=== PATIENT | male | born 1970 | race Caucasian/White ===

== ENCOUNTER 2017-06-19 17:19 | Emergency (ER) | payer BC ==
[2017-06-19 19:05] LABS: APPEARANCE HAZY (CLEAR); BILIRUBIN NEGATIVE (NEGATIVE); COLOR YELLOW (YELLOW); GLUCOSE 50 mg/dL (NEGATIVE); KETONE NEGATIVE (NEGATIVE); NITRITE NEGATIVE (NEGATIVE); PROTEIN 3+ mg/dL (NEGATIVE); UROBILINOGEN NORMAL (NORMAL)
[2017-06-19 19:20] LABS: BACTERIA FEW /hpf (NONE SEEN); EPITHELIAL CELLS RARE /hpf (0-5); RED CELLS - URINE >50 /hpf (0-5); WHITE CELLS - URINE 0-5 /hpf (0-5)
[2017-06-19 19:35] LABS: BASOPHILS 0.5 % (0-2); EOSINOPHILS 4.2 % (0-7); HEMATOCRIT 38.7 % (42.0-54.0); HEMOGLOBIN 13.1 g/dL (13.5-17.5); IMMATURE GRANULOCYTES 0.2 % (0-5); LYMPHOCYTES 22.4 % (15-50); MCH 30.8 pg (26.0-34.0); MCHC 33.9 g/dL (31.0-37.0); MCV 90.8 fL (80.0-100.0); MONOCYTES 7.9 % (2-11); NEUTROPHILS 64.8 % (40-80); PLATELET COUNT 131 10x3/uL (130-400); RBC 4.26 10x6/uL (4.20-6.10); RDW 13.2 % (11.5-14.5); WBC 10.6 10x3/uL (4.8-10.8)
[2017-06-19 19:51] LABS: ALBUMIN 1.9 g/dL (3.4-5.0); BILIRUBIN - TOTAL 0.22 mg/dL (0.2-1.3); CALCIUM 8.1 mg/dL (8.5-10.1); CREATININE - SERUM 3.6 mg/dL (0.6-1.3); PROTEIN - SERUM 5.9 g/dL (6.4-8.2)
[2017-06-22 11:21] VITALS: BMI 31.3
== END 2017-06-19 23:10 | disposition home or self-care (01) ==
LOC: D.ER 17:19
PROVIDERS: Emergency Medicine
DX: N23 Unspecified renal colic (principal); I12.9 Hypertensive chronic kidney disease with stage 1 through stage 4 chronic kidney disease, or unspecified chronic kidney disease; N18.9 Chronic kidney disease, unspecified; E11.649 Type 2 diabetes mellitus with hypoglycemia without coma; Z79.4 Long term (current) use of insulin

== ENCOUNTER 2017-06-21 11:25 | Inpatient (IN) | payer BC ==
[~2017-06-21] VITALS: Ht 170.2 cm; Wt 98.0 kg
[2017-06-21 12:16] LABS: BASOPHILS 0.5 % (0-2); EOSINOPHILS 4.9 % (0-7); HEMOGLOBIN 12.7 g/dL (13.5-17.5); IMMATURE GRANULOCYTES 0.3 % (0-5); LYMPHOCYTES 24.4 % (15-50); MCH 30.5 pg (26.0-34.0); MCHC 33.4 g/dL (31.0-37.0); MCV 91.3 fL (80.0-100.0); MEAN PLATELET VOLUME 10.5 fL (7.4-10.4); MONOCYTES 6.7 % (2-11); NEUTROPHILS 63.2 % (40-80); PLATELET COUNT 129 10x3/uL (130-400); RBC 4.16 10x6/uL (4.20-6.10); RDW 13.4 % (11.5-14.5)
[2017-06-21 12:34] LABS: WBC 7.6 10x3/uL (4.8-10.8)
[2017-06-21 12:35] LABS: APPEARANCE CLEAR (CLEAR); BACTERIA FEW /hpf (NONE SEEN); BILIRUBIN NEGATIVE (NEGATIVE); COLOR YELLOW (YELLOW); EPITHELIAL CELLS OCC /hpf (0-5); GLUCOSE 250 mg/dL (NEGATIVE); KETONE NEGATIVE (NEGATIVE); MUCUS <1+ /lpf (NONE SEEN); NITRITE NEGATIVE (NEGATIVE); PROTEIN 3+ mg/dL (NEGATIVE); UROBILINOGEN NORMAL (NORMAL)
[2017-06-21 12:36] LABS: ALBUMIN 1.8 g/dL (3.4-5.0); ANION GAP 9.3 mmol/L (8-16); BILIRUBIN - TOTAL 0.25 mg/dL (0.2-1.3); CALCIUM 8.3 mg/dL (8.5-10.1); CARBON DIOXIDE 30.1 mmol/L (21.0-32.0); CREATININE - SERUM 3.8 mg/dL (0.6-1.3); POTASSIUM - SERUM 4.4 mmol/L (3.5-5.1); PROTEIN - SERUM 5.8 g/dL (6.4-8.2)
[2017-06-21 20:00] VITALS: BP 177/92
[2017-06-21 20:04] VITALS: BMI 31.4
[2017-06-21 20:40] VITALS: BP 139/85
[2017-06-22] VITALS: BP 160/87
[2017-06-22] MEDS ORDERED: CATAPRES0.3 MG PO (03:53)
[2017-06-22] MEDS ORDERED: LASIX80 MG PO (03:54)
[2017-06-22] MEDS ORDERED: NEURONTIN600 MG PO (03:54)
[2017-06-22] MEDS ORDERED: HYDROCODONE-APA1 TAB PO (03:55)
[2017-06-22] MEDS ORDERED: ZESTRIL40 MG PO (03:55)
[2017-06-22] MEDS ORDERED: ROBAXIN-750750 MG PO (03:56)
[2017-06-22] MEDS ORDERED: PRAVACHOL40 MG PO (03:58)
[2017-06-22] MEDS ORDERED: NORVASC10 MG PO (03:58)
[2017-06-22 04:00] VITALS: BP 184/100
[2017-06-22 06:09] LABS: BASOPHILS 0.5 % (0-2); EOSINOPHILS 6.7 % (0-7); HEMATOCRIT 34.1 % (42.0-54.0); HEMOGLOBIN 11.3 g/dL (13.5-17.5); IMMATURE GRANULOCYTES 0.3 % (0-5); LYMPHOCYTES 31.6 % (15-50); MCH 30.1 pg (26.0-34.0); MCHC 33.1 g/dL (31.0-37.0); MCV 90.7 fL (80.0-100.0); MEAN PLATELET VOLUME 10.4 fL (7.4-10.4); MONOCYTES 9.9 % (2-11); PLATELET COUNT 105 10x3/uL (130-400); RBC 3.76 10x6/uL (4.20-6.10); RDW 13.5 % (11.5-14.5); WBC 6.3 10x3/uL (4.8-10.8)
[2017-06-22 06:20] LABS: ALBUMIN 1.5 g/dL (3.4-5.0); ANION GAP 9.3 mmol/L (8-16); BILIRUBIN - TOTAL 0.2 mg/dL (0.2-1.3); CARBON DIOXIDE 27.6 mmol/L (21.0-32.0); CREATININE - SERUM 3.9 mg/dL (0.6-1.3); POTASSIUM - SERUM 3.9 mmol/L (3.5-5.1); PROTEIN - SERUM 5.2 g/dL (6.4-8.2)
[2017-06-22 08:00] VITALS: BP 171/90
[2017-06-22 09:21] VITALS: BMI 31.3
[2017-06-22 11:21] VITALS: Ht 170.2 cm; Wt 98.0 kg
[2017-06-22 11:32] LABS: % SATURATION 33 % (15-55); IRON 42 ug/dl (35-150); TOTAL IRON BIND CAPACITY 124 ug/dl (260-445); UNSAT IRON BIND CAPACITY 82 ug/dl (150-375)
[2017-06-22 13:32] VITALS: BP 128/91
[2017-06-22 16:00] VITALS: BP 173/101
[2017-06-22 20:12] VITALS: BP 196/97
[2017-06-23 00:42] VITALS: BP 155/97
[2017-06-23 04:05] VITALS: BP 154/89
[2017-06-23 06:26] LABS: BASOPHILS 0.5 % (0-2); EOSINOPHILS 5.6 % (0-7); HEMATOCRIT 33.4 % (42.0-54.0); HEMOGLOBIN 11.4 g/dL (13.5-17.5); MCH 30.5 pg (26.0-34.0); MCHC 34.1 g/dL (31.0-37.0); MCV 89.3 fL (80.0-100.0); MEAN PLATELET VOLUME 10.2 fL (7.4-10.4); MONOCYTES 10.2 % (2-11); NEUTROPHILS 60.7 % (40-80); PLATELET COUNT 102 10x3/uL (130-400); RBC 3.74 10x6/uL (4.20-6.10); RDW 13.3 % (11.5-14.5); WBC 6.4 10x3/uL (4.8-10.8)
[2017-06-23 06:48] LABS: ANION GAP 13.3 mmol/L (8-16); CALCIUM 7.6 mg/dL (8.5-10.1); CARBON DIOXIDE 24.1 mmol/L (21.0-32.0); CREATININE - SERUM 3.9 mg/dL (0.6-1.3)
[2017-06-23 06:49] LABS: POTASSIUM - SERUM 5.4 mmol/L (3.5-5.1)
[2017-06-23 08:21] LABS: FOLATE (FOLIC ACID) - SERUM 3.5 ng/mL (>3.0)
[2017-06-23 10:43] VITALS: BP 169/95
[2017-06-23 12:33] VITALS: BP 154/79
[2017-06-23 15:28] LABS: ERYTHROCYTE SEDIMENTATION RATE 90 mm/hr (0-15)
[2017-06-23 16:49] LABS: CREATININE - URINE 66.9 mg/dL (30-125)
[2017-06-23 16:56] LABS: PRO/CRE RATIO URINE 8.2 mg/g; PROTEIN - URINE 549.7 mg/dL (0.0-11.9)
[2017-06-23 16:57] LABS: APPEARANCE CLEAR (CLEAR); BILIRUBIN NEGATIVE (NEGATIVE); COLOR STRAW (YELLOW); GLUCOSE 1000 mg/dL (NEGATIVE); KETONE NEGATIVE (NEGATIVE); NITRITE NEGATIVE (NEGATIVE); PROTEIN 2+ mg/dL (NEGATIVE); SPECIFIC GRAVITY 1.015 (1.005-1.020); UROBILINOGEN NORMAL (NORMAL)
[2017-06-23 17:03] LABS: BACTERIA FEW /hpf (NONE SEEN); WHITE CELLS - URINE 0-5 /hpf (0-5)
[2017-06-23 17:04] LABS: HYALINE CAST RARE /lpf (NONE SEEN)
[2017-06-23 20:00] VITALS: BP 157/96
[2017-06-24] VITALS (7 sets, daily range): BP systolic 145–188; BP diastolic 62–99
[2017-06-24 05:37] LABS: BASOPHILS 0.7 % (0-2); EOSINOPHILS 5.9 % (0-7); HEMATOCRIT 34.3 % (42.0-54.0); HEMOGLOBIN 11.6 g/dL (13.5-17.5); IMMATURE GRANULOCYTES 0.2 % (0-5); LYMPHOCYTES 20.1 % (15-50); MCH 30.1 pg (26.0-34.0); MCHC 33.8 g/dL (31.0-37.0); MCV 88.9 fL (80.0-100.0); MEAN PLATELET VOLUME 11.2 fL (7.4-10.4); MONOCYTES 8.6 % (2-11); NEUTROPHILS 64.5 % (40-80); PLATELET COUNT 114 10x3/uL (130-400); RBC 3.86 10x6/uL (4.20-6.10); RDW 13.3 % (11.5-14.5); WBC 6.1 10x3/uL (4.8-10.8)
[2017-06-24 06:05] LABS: APTT 35.6 SECONDS (22.8-39.4)
[2017-06-24 06:08] LABS: CALCIUM 7.4 mg/dL (8.5-10.1); CARBON DIOXIDE 19.1 mmol/L (21.0-32.0); CREATININE - SERUM 4.4 mg/dL (0.6-1.3)
[2017-06-24 06:09] LABS: INR 0.88 (0.85-1.17); PROTIME 11.6 SECONDS (11.6-15.0)
[2017-06-24 06:13] LABS: POTASSIUM - SERUM 6.1 mmol/L (3.5-5.1)
[2017-06-25 05:06] VITALS: BP 160/83
[2017-06-25 08:15] LABS: APPEARANCE HAZY (CLEAR); BILIRUBIN NEGATIVE (NEGATIVE); COLOR STRAW (YELLOW); GLUCOSE 50 mg/dL (NEGATIVE); KETONE NEGATIVE (NEGATIVE); NITRITE NEGATIVE (NEGATIVE); PROTEIN 3+ mg/dL (NEGATIVE); SPECIFIC GRAVITY 1.015 (1.005-1.020); UROBILINOGEN NORMAL (NORMAL)
[2017-06-25 08:17] LABS: RED CELLS - URINE 25-50 /hpf (0-5); WHITE CELLS - URINE 0-5 /hpf (0-5)
[2017-06-25 08:17] LABS: BASOPHILS 0.6 % (0-2); EOSINOPHILS 3.2 % (0-7); HEMATOCRIT 31.2 % (42.0-54.0); HEMOGLOBIN 10.7 g/dL (13.5-17.5); IMMATURE GRANULOCYTES 0.2 % (0-5); MCH 30.3 pg (26.0-34.0); MCHC 34.3 g/dL (31.0-37.0); MCV 88.4 fL (80.0-100.0); MEAN PLATELET VOLUME 10.4 fL (7.4-10.4); MONOCYTES 10.9 % (2-11); NEUTROPHILS 67.1 % (40-80); PLATELET COUNT 130 10x3/uL (130-400); RBC 3.53 10x6/uL (4.20-6.10); RDW 13.5 % (11.5-14.5); WBC 4.7 10x3/uL (4.8-10.8)
[2017-06-25 08:18] LABS: AMORPHOUS SEDIMENT >1+ /lpf (NONE SEEN); BACTERIA MODERATE /hpf (NONE SEEN); EPITHELIAL CELLS 0-5 /hpf (0-5); GRANULAR CAST 0-5 /lpf (NONE SEEN); HYALINE CAST RARE /lpf (NONE SEEN); MUCUS <1+ /lpf (NONE SEEN)
[2017-06-25 08:32] LABS: ANION GAP 13.6 mmol/L (8-16); CALCIUM 7.5 mg/dL (8.5-10.1); CARBON DIOXIDE 22.5 mmol/L (21.0-32.0); CREATININE - SERUM 4.3 mg/dL (0.6-1.3); POTASSIUM - SERUM 4.1 mmol/L (3.5-5.1)
[2017-06-25 08:45] VITALS: BP 170/82
[2017-06-25 12:03] LABS: BASOPHILS 1.2 % (0-2); EOSINOPHILS 2.1 % (0-7); HEMATOCRIT 29.9 % (42.0-54.0); HEMOGLOBIN 10.2 g/dL (13.5-17.5); IMMATURE GRANULOCYTES 0.2 % (0-5); LYMPHOCYTES 17.9 % (15-50); MCH 30.2 pg (26.0-34.0); MCHC 34.1 g/dL (31.0-37.0); MCV 88.5 fL (80.0-100.0); MEAN PLATELET VOLUME 9.5 fL (7.4-10.4); NEUTROPHILS 69.6 % (40-80); PLATELET COUNT 104 10x3/uL (130-400); RBC 3.38 10x6/uL (4.20-6.10); RDW 13.4 % (11.5-14.5); WBC 4.2 10x3/uL (4.8-10.8)
[2017-06-25 13:17] VITALS: BP 162/80
[2017-06-25 15:52] VITALS: BP 206/91
[2017-06-25 20:31] VITALS: BP 150/83
[2017-06-26 01:49] VITALS: BP 167/79
[2017-06-26 04:57] VITALS: BP 140/99
[2017-06-26 06:42] LABS: BASOPHILS 0.8 % (0-2); EOSINOPHILS 0.3 % (0-7); HEMATOCRIT 28.6 % (42.0-54.0); HEMOGLOBIN 9.5 g/dL (13.5-17.5); IMMATURE GRANULOCYTES 0.5 % (0-5); LYMPHOCYTES 16.2 % (15-50); MCH 29.8 pg (26.0-34.0); MCHC 33.2 g/dL (31.0-37.0); MCV 89.7 fL (80.0-100.0); MEAN PLATELET VOLUME 10.4 fL (7.4-10.4); MONOCYTES 6.2 % (2-11); PLATELET COUNT 109 10x3/uL (130-400); RBC 3.19 10x6/uL (4.20-6.10); RDW 13.6 % (11.5-14.5); WBC 3.7 10x3/uL (4.8-10.8)
[2017-06-26 07:01] LABS: ANION GAP 13.8 mmol/L (8-16); CALCIUM 7.2 mg/dL (8.5-10.1); CARBON DIOXIDE 21.1 mmol/L (21.0-32.0); CREATININE - SERUM 4.8 mg/dL (0.6-1.3); POTASSIUM - SERUM 3.9 mmol/L (3.5-5.1)
[2017-06-26 08:31] VITALS: BP 132/77
[2017-06-26 11:44] VITALS: BP 147/78
[2017-06-26 15:50] VITALS: BP 123/65
[2017-06-26 22:00] VITALS: BP 179/94
[2017-06-27 01:42] VITALS: BP 99/62
[2017-06-27 05:35] LABS: BASOPHILS 0.5 % (0-2); EOSINOPHILS 0 % (0-7); HEMATOCRIT 30.5 % (42.0-54.0); IMMATURE GRANULOCYTES 0.2 % (0-5); LYMPHOCYTES 17.6 % (15-50); MCH 29.9 pg (26.0-34.0); MCHC 32.8 g/dL (31.0-37.0); MEAN PLATELET VOLUME 10.3 fL (7.4-10.4); MONOCYTES 9.9 % (2-11); NEUTROPHILS 71.8 % (40-80); PLATELET COUNT 112 10x3/uL (130-400); RBC 3.35 10x6/uL (4.20-6.10); RDW 14.1 % (11.5-14.5); WBC 4.3 10x3/uL (4.8-10.8)
[2017-06-27 05:55] VITALS: BP 146/25
[2017-06-27 05:59] LABS: ANION GAP 12.7 mmol/L (8-16); CALCIUM 7.3 mg/dL (8.5-10.1); CARBON DIOXIDE 22.5 mmol/L (21.0-32.0); CREATININE - SERUM 4.9 mg/dL (0.6-1.3); POTASSIUM - SERUM 4.2 mmol/L (3.5-5.1)
[2017-06-27 09:26] VITALS: BP 147/76
[2017-06-27 12:43] VITALS: BP 119/60
[2017-06-27 17:33] VITALS: BP 102/64
[2017-06-27 21:52] VITALS: BP 135/72
[2017-06-28 00:48] VITALS: BP 138/74
[2017-06-28 05:33] VITALS: BP 143/73
[2017-06-28 06:26] LABS: HEMATOCRIT 29.9 % (42.0-54.0); HEMOGLOBIN 10.3 g/dL (13.5-17.5); LYMPHOCYTES 23.2 % (15-50); MCH 30.9 pg (26.0-34.0); MCHC 34.4 g/dL (31.0-37.0); MCV 89.8 fL (80.0-100.0); MEAN PLATELET VOLUME 10.7 fL (7.4-10.4); NEUTROPHILS 66.5 % (40-80); PLATELET COUNT 102 10x3/uL (130-400); RBC 3.33 10x6/uL (4.20-6.10); RDW 13.6 % (11.5-14.5)
[2017-06-28 06:36] LABS: ALBUMIN 1.4 g/dL (3.4-5.0); ANION GAP 14.7 mmol/L (8-16); BILIRUBIN - TOTAL 0.4 mg/dL (0.2-1.3); CALCIUM 7.1 mg/dL (8.5-10.1); CARBON DIOXIDE 20.8 mmol/L (21.0-32.0); CREATININE - SERUM 5.2 mg/dL (0.6-1.3); POTASSIUM - SERUM 4.5 mmol/L (3.5-5.1); PROTEIN - SERUM 4.8 g/dL (6.4-8.2)
[2017-06-28 08:30] VITALS: BP 127/70
[2017-06-28 12:08] VITALS: BP 98/63
[2017-06-28 16:52] VITALS: BP 123/54
[2017-06-28 21:28] VITALS: BP 104/65
[2017-06-29 04:35] LABS: BASOPHILS 0.5 % (0-2); EOSINOPHILS 2.4 % (0-7); HEMATOCRIT 29.1 % (42.0-54.0); HEMOGLOBIN 9.4 g/dL (13.5-17.5); IMMATURE GRANULOCYTES 0.5 % (0-5); LYMPHOCYTES 45.8 % (15-50); MCH 29.7 pg (26.0-34.0); MCHC 32.3 g/dL (31.0-37.0); MEAN PLATELET VOLUME 10.4 fL (7.4-10.4); MONOCYTES 8.5 % (2-11); NEUTROPHILS 42.3 % (40-80); PLATELET COUNT 91 10x3/uL (130-400); RBC 3.16 10x6/uL (4.20-6.10); RDW 14.3 % (11.5-14.5); WBC 3.8 10x3/uL (4.8-10.8)
[2017-06-29 04:36] VITALS: BP 109/64
[2017-06-29 04:45] LABS: MCV 92.1 fL (80.0-100.0)
[2017-06-29 05:02] LABS: ALBUMIN 1.4 g/dL (3.4-5.0); ANION GAP 12.8 mmol/L (8-16); BILIRUBIN - TOTAL 0.34 mg/dL (0.2-1.3); CARBON DIOXIDE 23.2 mmol/L (21.0-32.0); CREATININE - SERUM 5.3 mg/dL (0.6-1.3); PROTEIN - SERUM 4.7 g/dL (6.4-8.2)
[2017-06-29 08:21] VITALS: BP 131/67
[2017-06-29 12:24] VITALS: BP 101/55
[2017-06-29 16:31] VITALS: BP 108/55
[2017-06-29 21:09] VITALS: BP 134/73
[2017-06-30 00:08] VITALS: BP 119/58
[2017-06-30 04:54] VITALS: BP 113/53
[2017-06-30 06:25] LABS: BASOPHILS 0.2 % (0-2); EOSINOPHILS 0.6 % (0-7); HEMOGLOBIN 9.9 g/dL (13.5-17.5); IMMATURE GRANULOCYTES 0.5 % (0-5); LYMPHOCYTES 16.7 % (15-50); MCH 30.3 pg (26.0-34.0); MCV 91.7 fL (80.0-100.0); MEAN PLATELET VOLUME 10.6 fL (7.4-10.4); RBC 3.27 10x6/uL (4.20-6.10); RDW 14.1 % (11.5-14.5)
[2017-06-30 06:26] LABS: PLATELET COUNT 129 10x3/uL (130-400); WBC 6.3 10x3/uL (4.8-10.8)
[2017-06-30 06:47] LABS: ALBUMIN 1.6 g/dL (3.4-5.0); ANION GAP 21.9 mmol/L (8-16); BILIRUBIN - TOTAL 0.38 mg/dL (0.2-1.3); CALCIUM 7.1 mg/dL (8.5-10.1); CREATININE - SERUM 5.4 mg/dL (0.6-1.3); POTASSIUM - SERUM 3.9 mmol/L (3.5-5.1); PROTEIN - SERUM 4.9 g/dL (6.4-8.2)
[2017-06-30 09:51] VITALS: BP 148/76
[2017-06-30 12:37] VITALS: BP 146/70
[2017-06-30 15:22] VITALS: BP 148/64
[2017-06-30 21:43] VITALS: BP 168/75
[2017-07-01 00:25] VITALS: BP 174/64
[2017-07-01 04:40] VITALS: BP 167/83
[2017-07-01 05:23] LABS: BASOPHILS 0.3 % (0-2); EOSINOPHILS 1.2 % (0-7); HEMATOCRIT 31.8 % (42.0-54.0); HEMOGLOBIN 10.3 g/dL (13.5-17.5); IMMATURE GRANULOCYTES 0.5 % (0-5); MCH 29.4 pg (26.0-34.0); MCHC 32.4 g/dL (31.0-37.0); MCV 90.9 fL (80.0-100.0); MEAN PLATELET VOLUME 10.2 fL (7.4-10.4); MONOCYTES 6.5 % (2-11); NEUTROPHILS 74.5 % (40-80); PLATELET COUNT 147 10x3/uL (130-400); RDW 14.2 % (11.5-14.5); WBC 6.4 10x3/uL (4.8-10.8)
[2017-07-01 05:56] LABS: ALBUMIN 1.8 g/dL (3.4-5.0); ANION GAP 16.6 mmol/L (8-16); BILIRUBIN - TOTAL 0.52 mg/dL (0.2-1.3); CALCIUM 7.9 mg/dL (8.5-10.1); CARBON DIOXIDE 20.9 mmol/L (21.0-32.0); CREATININE - SERUM 4.5 mg/dL (0.6-1.3)
[2017-07-01 05:59] LABS: POTASSIUM - SERUM 4.5 mmol/L (3.5-5.1)
[2017-07-01 11:58] VITALS: BP 113/67
[2017-07-01 16:09] VITALS: BP 140/70
[2017-07-01 22:10] VITALS: BP 158/80
[2017-07-02 00:14] VITALS: BP 135/75
[2017-07-02 06:33] VITALS: BP 133/76
== END 2017-07-02 07:08 | disposition short-term general hospital (02) | DRG 682 ==
LOC: D.ER 11:25 → D.M3 14:40 → D.MS 14:40 → D.SDCHOLD 14:40 → D.M3 17:51 → D.MS 06-25 16:52
PROVIDERS: Emergency Medicine; Family Medicine; Internal Medicine Nephrology; Specialist
PROC: 0TB03ZX Excision of Right Kidney, Percutaneous Approach, Diagnostic (ICD-10-PCS; principal; 2017-06-24 11:30)
DX: N17.9 Acute kidney failure, unspecified (principal); E43 Unspecified severe protein-calorie malnutrition; J10.00 Influenza due to other identified influenza virus with unspecified type of pneumonia; K56.7 Ileus, unspecified; E10.22 Type 1 diabetes mellitus with diabetic chronic kidney disease; I12.9 Hypertensive chronic kidney disease with stage 1 through stage 4 chronic kidney disease, or unspecified chronic kidney disease; N18.4 Chronic kidney disease, stage 4 (severe); K59.00 Constipation, unspecified; D64.9 Anemia, unspecified; D69.6 Thrombocytopenia, unspecified; Z68.31 Body mass index [BMI] 31.0-31.9, adult; D75.9 Disease of blood and blood-forming organs, unspecified; D47.2 Monoclonal gammopathy; F17.200 Nicotine dependence, unspecified, uncomplicated; E10.21 Type 1 diabetes mellitus with diabetic nephropathy

== ENCOUNTER → 2018-09-22 13:55 | Outpatient (CLI) | payer BC ==
[2017-06-22 11:21] VITALS: BMI 31.3
[~2018-09-22 13:55] MED LIST: CATAPRES0.3 MG PO; HYDROCODONE-APA1 TAB PO; LASIX80 MG PO; NEURONTIN600 MG PO; NORVASC10 MG PO; PRAVACHOL40 MG PO; ROBAXIN-750750 MG PO; ZESTRIL40 MG PO
[2018-09-22 15:00] LABS: BASOPHILS 1.2 % (0-2); HEMATOCRIT 41.5 % (42.0-54.0); HEMOGLOBIN 13.8 g/dL (13.5-17.5); IMMATURE GRANULOCYTES 0.3 % (0-5); LYMPHOCYTES 33.1 % (15-50); MCH 31.7 pg (26.0-34.0); MCHC 33.3 g/dL (31.0-37.0); MCV 95.2 fL (80.0-100.0); MEAN PLATELET VOLUME 10.5 fL (7.4-10.4); MONOCYTES 6.2 % (2-11); NEUTROPHILS 55.2 % (40-80); PLATELET COUNT 147 10x3/uL (130-400); RBC 4.36 10x6/uL (4.20-6.10); RDW 14.5 % (11.5-14.5)
== END | disposition home or self-care (01) ==
LOC: D.LAB 13:55
PROVIDERS: ATTEND Internal Medicine Nephrology
DX: R11.10 Vomiting, unspecified (principal); R50.9 Fever, unspecified

== ENCOUNTER → 2019-01-19 09:25 | Outpatient (CLI) | payer BC ==
[2017-06-22 11:21] VITALS: BMI 31.3
[~2019-01-19 09:25] MED LIST changes: +ADALAT CC90 MG PO; +COREG25 MG PO; +FERRIC CITRATE210 MG PO; +HYDRALAZINE HC100 MG PO; +NOVOLOG100 UNIT/1 SC; +VITAMIN B-121000 MCG PO
--- NOTE | 2019-01-23 13:03 | EC ---
PATIENT:ROBERT FREEDMAN DATE OF SERVICE: 01/19/19 SEX: M MEDICAL RECORD: [id number] DATE OF : 74 LOCATION:[facility] AGE OF PATIENT: 48 ADMISSION DATE: 01/19/19 REFERRING PHYSICIAN: INTERPRETING PHYSICIAN: DENICE ARAUJO MD ECHOCARDIOGRAM REPORT ECHO CHARGES 4 ECHO COMPLETE Date: 01/19/19 CLINICAL DIAGNOSIS: DYSPNEA, HEART MURMUR/HTN ECHOCARDIOGRAPHIC MEASUREMENTS (adult normal given) AC root (d.<3.7cm) 2.0 cm LV Septum d (<1.2 cm> 1.2 cm Valve Excursion 1.6 cm LV Septum (systole) 1.3 cm Left Atria (s.<4.0cm> 3.9 cm LVPW d(<1.2cm) 1.5 cm RV (d.<2.3cm) 3.6 cm LVPW (sytole) 1.8 cm LV diastole(<5.6CM) 5.4 cm MV E-F(>70mm/sec) cm LV systole 3.7 cm LVOT Diameter 1.8 cm MV exc.(>10mm) 2.0 cm Est.ejection fraction (50-75%) % DOPPLER: LVIT cm/sec A 197 cm/sec E 115 cm/sec LA cm/sec RVSP 31 mmHg LVOT 145 cm/sec AOP1/2T m/s Asc. Ao 183 cm/sec RVOT 88 cm/sec RA cm/sec PA 122 cm/sec AV Gradient Peak 13.39mmHg AV Mean 6.62 mmHg AV Area 2.2 cm MV Gradient Peak 7.66 mmHg MV Mean 1.88 mmHg MV Area cm COMMENTS: Manager General: 2 [place] LE[place]N Art Display Maker: 3 Dr. Villeda TAPE# PACS Pericardial Effusion N DATE OF SERVICE: Adequate 2D, color flow and spectral Doppler, M-mode. Borderline LVH. LV internal dimensions are normal. Wall motion is normal. EF is greater than or equal to 55%. Aortic valve is tricuspid. No evidence of stenosis by Doppler interrogation. Left atrium is normal at 3.9 cm. Mitral valve shows no prolapse. Trace MR. Right-sided chambers are grossly normal. Trace TR. ECHOCARDIOGRAM REPORT [id number] ROBERT FREEDMAN TRANSINT:[id number] Voice Confirmation ID: [id number] DOCUMENT ID: [id number] DENICE ARAUJO MD at 1303 CC: [id number] DICTATION DATE: 01/20/19 1044 DISTANCE EDUCATION DIRECTOR: 01/20/19 1129 DEP CLI 01/19/19 [id number] [place] [address]
== END | disposition home or self-care (01) ==
LOC: D.HCCECHO 09:25 → D.HCCARDIO 11:00
PROVIDERS: ATTEND Internal Medicine Interventional Cardiology
DX: I20.9 Angina pectoris, unspecified (principal)

== ENCOUNTER 2019-01-23 11:15 | Outpatient (CLI) | payer BC ==
[~2019-01-23] VITALS: Ht 172.7 cm; Wt 84.1 kg
--- NOTE | ~2019-01-23 | HEMODYNAMI ---
PATIENT:ROBERT FREEDMAN MEDICAL RECORD: [id number] : 74 LOCATION:[facility] ADMISSION DATE: 01/23/19 Generatedon:01/23/201913:44 Patient name: ROBERT FREEDMAN Patient #: [id number] SSN: DO B: 1970 Date of study: 01/23/2019 Page: Of Hemodynamic Procedure Report Patient Data Patient Demographics Procedure consent was obtained First Name: Gender: Male Last Name: TANO : 1970 [facility] Initial: K Age: 48 year(s) Patient #: [id number] Race: Unknown Additional ID: [id number] Contact details [address]: [address] [place] [address] State: [place] City: [place] Zip code: [address] Admission Admission Data Admission Date: 01/23/2019 Admission Time: 11:15 Lab Results Lab Result Date: 01/23/2019 Lab Result Time: 0:00 Biochemistry Name Units Result Min Max BUN mg/dl 46 --(----)-* 7 18 Creatinine mg/dl 6.4 --(----)-* 0.6 1.3 eGFR ml/min 10 *-(----)-- 90 120 NONAFRICAN CBC Name Units Result Min Max Hemoglobin g/dl 11.6 *-(----)-- 13.5 17.5 Procedure Procedure Types Cath Procedure Diagnostic Procedure C [facility] w/Coronaries Sedation Charges Moderate Sedation up to 15 minutes Procedure Description Procedure Date Procedure Date: 01/23/2019 Procedure Start Time: 13:31 Procedure End Time: 13:40 Procedure Staff Name Function Lee Nguyen MD Performing Physician Tello Darby RT Monitor Awilda Umaña RT Scrub Kemar Ma RN Nurse Procedure Data Cath Procedure Fluoroscopy Diagnostic fluoroscopy Total fluoroscopy Time: 1.6 time: 1.6 min min Diagnostic fluoroscopy Total fluoroscopy dose: 375 dose: 375 mGy mGy Contrast Material Contrast Material Type Amount (ml) Isovue 300 70 Entry Location Entry Primary Successful Side Size Upsize Upsize Entry Closure Succes sful Closure Location (Fr) 1 (Fr) 2 (Fr) Remarks Device Remarks Femoral Right 5 Fr Exoseal artery Estimated blood loss: 5 ml Diagnostic catheters Device Type Used For End Catheter Placement MULTIPACK JL 4.0 5Fr Left Coronary catheter Angiography MULTIPACK 3DRC 5Fr Right Coronary catheter Angiography MULTIPACK Pigtail 5 Fr LV Angiography catheter Procedure Complications No complications Procedure Medications Medication Administration Route Dosage 0.9% NaCl I.V. 100 ml/hr Oxygen etCO2 Nasal cannula 2 l/min Heparin Flush Bag added to field 2 bags (1000units/500ml NS) Lidocaine 2% added to field 20 Versed I.V. 1 mg Fentanyl I.V. 50 mcg Hemodynamics Rest HGB: 11.6 (g/dl) Heart Rate: 78 (bpm) Pressure Samples Time Site Value (mmHg) Purpose Heart Use Rate(bpm) 13:37 LV 144/13,20 Snapshot 79 Gradients Valve Time Site Site Mean SEP/DFP Peak To Heart Use 1 2 (mmHg) (sec/min) Peak Rate (mmHg) (bpm) Aortic 13:37 LV AO 75 Snapshots Pre Cath Intra NCS Post Cath Vital Signs Time Heart Resp SPO2 etCO2 NIBP (mmHg) Rhythm Pain Sedation Rate (ipm) (%) (mmHg) Status Level (bpm) 13:21:02 74 17 100 39 170/99(141) NSR 0 (11) 10(A) , No pain 13:25:20 75 11 100 42 164/93(141) NSR 0 (11) 10(A) , No pain 13:29:36 74 19 100 44.2 151/90(130) NSR 0 (11) 9(A) , No pain 13:33:50 74 18 100 45.8 146/82(121) NSR 0 (11) 9(A) , No pain 13:38:02 75 24 99 45.8 143/84(118) NSR 0 (11) 10(A) , No pain Medications Time Medication Route Dose Verified Delivered Reason Notes Eff ectiveness by by 13:23:17 0.9% NaCl I.V. 100 Kemar Kemar Per ml/hr Anil Ma physician RN RN 13:23:25 Oxygen etCO2 2 Kemar Kemar for low 02 Nasal l/min Anil Ma sats cannula RN RN 13:23:38 Heparin Flush added 2 Kemar Kemar used for Bag to bags Lorremigio Ma procedure (1000units/500ml field RN RN NS) 13:23:51 Lidocaine 2% added 20ml Kemar Kemar for local to vial Lorigan Anil anesthetic field RN RN 13:29:21 Versed I.V. 1 mg Kemar Kemar for Lorigan Lorigan sedation RN RN 13:29:29 Fentanyl I.V. 50 Kemar Kemar for mcg Lorigan Lorigan sedation RN mounter saxophones Log Time Note 13:00:34 Kemar Ma RN sent for patient. Start room use. 13:10:43 Diagnostic Cath Status : Elective 13:19: Lab Result : BUN 46 mg/dl 13:: Lab Result : eGFR NONAFRICAN 10 ml/min 13:: Lab Result : Creatinine 6.4 mg/dl 13:: Lab Result : Hemoglobin 11.6 g/dl 13:19:40 Time tracking: Regular hours (M-F 7:00 - 5:00) 13:19:44 Plan of Care:Hemodynamics will remain stable., Cardiac rhythm will remain stable., Comfort level will be maintained., Respiratory function will remain adequate., Patient/ family verbilizes understanding of procedure., Procedure tolerated without complication., Recovers from procedure without complications.. 13:19:49 Patient received from Pre/Post Procedure Room to [facility] 2 Alert and oriented. Tansferred to table in Supine position. 13:19:52 Signed procedure consent form obtained from patient. 13:19:53 Warm blankets applied, and uday hugger turned on for patient comfort. 13:19:54 Correct patient and procedure confirmed by team. 13:19:54 ECG and BP/O2 sat monitors applied to patient. 13:19:55 Vital chart was started 13:19:57 Baseline sample Acquired. 13:20:01 Rhythm: sinus rhythm 13:20:03 Full Disclosure recording started 13:20:07 H&P Date Dictated: 01/23/2019 Within 30 days and on chart., H&P Addendum completed by physician on day of procedure. (MUST COMPLETE FOR ALL OUTPATIENTS). 13:20:08 Pre-procedure instructions explained to patient. 13:20:09 Pre-op teaching completed and patient verbalized understanding. 13:20:10 Family in waiting room. 13:20:12 Patient NPO since Midnight. 13:20:14 Is the patient allergic to Iodine/contrast media? No. 13:20:15 Was the patient premedicated? No 13:20:16 Is patient on blood thinner?No 13:20:17 Patient diabetic? Yes. 13:20:18 If diabetic: On Metformin? No 13:20:20 Previous problem with sedation/anesthesia? No ? 13:20:22 Snore? Yes 13:20:23 Sleep apnea? No 13:20:24 Deviated septum? No 13:20:24 Opens mouth fully? Yes 13:20:25 Sticks out tongue? Yes 13:20:27 Airway obstruction? No ? 13:20:35 Dentures? Yes in tight 13:23:17 0.9% NaCl 100 ml/hr I.V. was administered by Kemar Ma RN; Per physician; 13:23:25 Oxygen 2 l/min etCO2 Nasal cannula was administered by Kemar Ma RN; for low 02 sats; 13:23:38 Heparin Flush Bag (1000units/500ml NS) 2 bags added to field was administered by Kemar Ma RN; used for procedure; 13:23:51 Lidocaine 2% 20ml vial added to field was administered by Kemar Ma RN; for local anesthetic; 13:24:08 Pre procedure: right dorsailis pedis pulse 1+ Palpable, but thready & weak; easily obliterated 13:24:10 Pre procedure: left dorsailis pedis pulse 1+ Palpable, but thready & weak; easily obliterated 13:24:11 Patient pain scale 0/10 ?. 13:24:18 IV patent on arrival in right forearm with 0.9% NaCl at [facility]. 13:24:21 Lab results completed and on chart. 13:24:25 Right groin area was prepped with chlora-prep and draped in sterile fashion 13:24:26 Alarms reviewed by R. N. 13:24:27 Sharps counted by scrub and verified by R.N. 13:24:32 Physician arrived 13:24:34 --------ALL STOP TIME OUT------ 13:24:35 Final Timeout: patient, procedure, and site verified with staff and physician. All members of the team are in agreement. 13:24:37 Right groin site verified by team. 13:24:40 Fire Safety Assessment: A--An alcohol-based skin anteseptic being used preoperatively., C--Open oxygen or nitrous oxide is being used., D--An ESU, laser, or fiber-optic light is being used. 13:24:57 Physical assessment completed. ASA score P 2 - A patient with mild systemic disease as per Lee Nguyen MD. 13:24:59 5) <15 or on dialysis Very severe, or end stage kidney failure. 13:25:02 Maximum allowable contrast dose (3.7 X eGFR X 0.75)27 ml. 13:25:05 Sedation plan: IV Moderate Sedation Medication:Versed, Fentanyl 13:25:08 Use device set Femoral Dx 13:25:09 ACIST Syringe (16448) opened to sterile field. 13:25:10 Bag Decanter (2002S) opened to sterile field. 13:25:10 Medline Cath Pack ([id number]) opened to sterile field. 13:25:11 ACIST Hand Control (60720) opened to sterile field. 13:25:12 ACIST Manifold (86570) opened to sterile field. 13:25:12 DIAGNOSTIC Multipack 5Fr catheter set (PE2101) opened to sterile field. 13:25:13 Tegaderm 4 x 4 (1626W) opened to sterile field. 13:25:14 SHEATH 5FR Schulter (WQE420) opened to sterile field. 13:25:15 EMERALD Guide Wire (146-417) opened to sterile field. 13:26:39 Procedure Status Elective Heart Cath (OP). 13:26:43 ACC Patient presents with Stable Angina CCS Anginal Class 2--Slight limitation of ordinary activity. 13:29:21 Versed 1 mg I.V. was administered by Kemar Ma RN; for sedation; 13:29:29 Fentanyl 50 mcg I.V. was administered by Kemar Ma RN; for sedation; 13:29:36 Zero performed for pressure channel P1 13:31:05 Procedure started. 13:31:09 Local anesthetic to right femoral artery with Lidocaine 2% by Lee Nguyen MD.INITIAL ACCESS ONLY 13:31:17 A 5 Fr sheath was inserted into the Right Femoral artery 13:31:25 Zero performed for pressure channel P1 13:31:33 Zero performed for pressure channel P1 13:31:50 A MULTIPACK JL 4.0 5Fr catheter was advanced over the wire and used for Left Coronary Angiography. 13:33:01 LCA angiography performed. 13:33:10 Injector settings: Ml/sec: 3, Volume: 6, 13:33:38 Catheter removed. 13:33:42 A MULTIPACK 3DRC 5Fr catheter was advanced over the wire and used for Right Coronary Angiography. 13:35:43 RCA angiography performed. 13:35:46 Injector settings: Ml/sec: 3, Volume: 6, 13:35:48 ACCDominant side:Right 13:35:50 Catheter removed. 13:36:01 A MULTIPACK Pigtail 5 Fr catheter was advanced over the wire and used for LV Angiography. 13:37:03 LV hemodynamics recorded. 13:37:04 LV gram done using QUIROS 13:37:07 Injector settings: Ml/sec: 5, Volume: 15, 13:37:37 EF : 50 % 13:38:25 Catheter removed. 13:38:26 EXOSEAL 5Fr (EX500) opened to sterile field. 13:38:34 Sheath removed intact; hemostasis achieved with Exoseal to the Right Femoral artery. 13:38:35 Procedure ended.(Physican Out) 13:39:07 Fluoroscopy time 01.60 minutes. 13:39:11 Flurop Dose total: 375 13:39:11 Fluoroscopy dose: 375 mGy 13:39:16 Dose Area Product 02202 mGy/cm. 13:39:30 Contrast amount:Isovue 300 70ml. 13:39:32 Sharps counted by scrub and verified by R.N. 13:39:34 Insertion/operative site no bleeding no hematoma. 13:39:36 Post-op/insertion site Right Femoral artery dressed using a 4 x 4 and Tegaderm. 13:39:39 Post right femoral artery:stable 13:39:40 Post Procedure Pulses reassessed and unchanged 13:39:43 Post procedure rhythm: unchanged. 13:39:45 Estimated blood loss: 5 ml 13:39:47 Post procedure instruction explained to patient.Patient verbalizes understanding. 13:39:47 Patient needs reinforcement of post procedure teaching. 13:39:53 Procedure type changed to Cath procedure, Diagnostic procedure, LHC, LHC w/Coronaries, Sedation Charges, Moderate Sedation up to 15 minutes 13:39:54 Procedure and supply charges have been captured, reviewed, submitted and are correct. 13:39:58 Procedure Complication : No complications 13:40:00 Vital chart was stopped 13:40:01 See physician's report for complete and final results. 13:40:14 Report given to Pre/Post Procedure Room. 13:40:18 Patient transfered to Pre/Post Procedure Room with Stretcher. 13:40:20 Procedure ended. 13:40:20 Full Disclosure recording stopped 13:40:25 End room use (Document Last) Device Usage Item Name Manufacture Quantity Catalog Hospital Part Current Minimal L ot# / Number Charge Number Stock Stock Serial# Code ACIST Acist 1 80047 791025 776013 697666 20 Syringe Medical (40939) Systems Inc Bag Microtek 1 2001S 162316 60511 463412 5 Decanter Medical Inc. () Medline Medline 1 [id number] 400586 28418 407938 5 Cath Pack ([id number]) ACIST Hand Acist 1 94936 186536 890207 078870 5 Control Medical (00589) Systems Inc ACIST Acist 1 83816 574575 916032 890416 5 Manifold Medical (75626) Systems Inc DIAGNOSTIC Cardinal 1 CV2719 634232 12399 912495 30 Multipack Health 5Fr catheter set (OE1949) Tegaderm 4 3M 1 1626W 444240 149883 211258 5 x 4 (1626W) SHEATH 5FR Terumo 1 SKO786 882858 991726 462143 5 Schulter (FKN552) EMERALD Cardinal 1 502-455 424528 847293 615045 5 Guide Wire Health (502-455) MULTIPACK Cardinal 1 635897 5 JL 4.0 5Fr Health catheter MULTIPACK Cardinal 1 204280 5 3DRC 5Fr Health catheter MULTIPACK Cardinal 1 552237 5 Pigtail 5 Health Fr catheter EXOSEAL 5Fr Cardinal 1 EX500 669160 267475 508916 10 (EX500) Health Signature Audit Padroni Stage Time Signature Unsigned Intra-Procedure 01/23/2019 Awilda Umaña 1:44:49 PM RT(R) Signatures Performing Physician : Signature : Lee Nguyen MD Date : Time : Monitor : Tello Glenelg RT Signature : Date : Time : Nurse : Kemar Lorigan Signature : RN Date : Time : [address] [place] [address]
[~2019-01-23 11:15] MED LIST changes: -ADALAT CC90 MG PO; -COREG25 MG PO; -FERRIC CITRATE210 MG PO; -HYDRALAZINE HC100 MG PO; -NOVOLOG100 UNIT/1 SC; -VITAMIN B-121000 MCG PO
[2019-01-23 11:57] VITALS: BP 165/79; Ht 172.7 cm; Wt 84.1 kg
[2019-01-23] MEDS ORDERED: VITAMIN B-121000 MCG PO (12:04)
[2019-01-23] MEDS ORDERED: ADALAT CC90 MG PO (12:04)
[2019-01-23] MEDS ORDERED: HYDRALAZINE HC100 MG PO (12:05)
[2019-01-23] MEDS ORDERED: COREG25 MG PO (12:05)
[2019-01-23 12:06] LABS: BASOPHILS 0.8 % (0-2); EOSINOPHILS 5.1 % (0-7); HEMATOCRIT 34.3 % (42.0-54.0); HEMOGLOBIN 11.6 g/dL (13.5-17.5); LYMPHOCYTES 30.7 % (15-50); MCHC 33.8 g/dL (31.0-37.0); MCV 94.8 fL (80.0-100.0); MEAN PLATELET VOLUME 10.5 fL (7.4-10.4); MONOCYTES 7.2 % (2-11); NEUTROPHILS 56.2 % (40-80); RBC 3.62 10x6/uL (4.20-6.10); RDW 13.8 % (11.5-14.5); WBC 5.3 10x3/uL (4.8-10.8)
[2019-01-23] MEDS ORDERED: FERRIC CITRATE210 MG PO (12:06)
[2019-01-23] MEDS ORDERED: NOVOLOG100 UNIT/1 SC (12:07)
[2019-01-23 12:12] LABS: PLATELET COUNT 115 10x3/uL (130-400)
[2019-01-23 12:28] LABS: ANION GAP 12.4 mmol/L (8-16); CALCIUM 8.2 mg/dL (8.5-10.1); CARBON DIOXIDE 26.9 mmol/L (21.0-32.0); CHOL - HDL RATIO 4.1 ratio (2.3-4.9); CREATININE - SERUM 6.4 mg/dL (0.6-1.3); LDL-HDL RATIO 2.4 ratio (1.5-3.5); POTASSIUM - SERUM 4.3 mmol/L (3.5-5.1)
--- NOTE | 2019-01-23 14:04 | NUR ---
RECEIVED PT FROM TEST DRIVER, DR ARAUJO HAS ROUNDED ON PT. PT IS ALERT, DENIES ANY C/O CHEST PAIN OR NAUSEA. DRESSING IS CDI TO RIGHT GROIN, AREA IS SOFT AND NONTENDER. PEDAL PULSES PALPABLE. NSR, RATE IS 76, BP IS 158/89. HOB IS FLAT, PT INSTRUCTED TO KEEP HEAD FLAT TO PILLOW AND RIGHT LEG STRAIGHT. AT BEDSIDE, SIDE RAILS UP X2, CALL LIGHT IN REACH. PT DENIES NEEDS AT THIS TIME.
--- NOTE | 2019-01-23 14:11 | NUR ---
DRESSING CDI, PEDAL PULSES PALPABLE. PT DENIES ANY C/O CHEST PAIN OR NAUSEA. NSR, RATE IS 76, BP IS 150/87. HOB FLAT, AT BEDSIDE.
--- NOTE | 2019-01-23 14:33 | NUR ---
PT DENIES ANY C/O. DRESSING CDI, PEDAL PULSES PALPABLE. VSS, HOB IS FLAT.
--- NOTE | 2019-01-23 15:12 | NUR ---
HOB ELEVATED AND SANWICH/ PO FLUIDS AT BEDSIDE. DRESSING IS CDI TO RIGHT GROIN, AREA IS SOFT AND NONTENDER. PEDAL PULSES PALPABLE. NSR, RATE IS 71, DENIES ANY C/O CHEST PAIN.
--- NOTE | 2019-01-23 15:48 | NUR ---
1540 PT HAS DOUG SANDWICH AND PO FLUIDS WITH NO C/O NAUSEA. DRESSING REMAINS CDI TO RIGHT GROIN, AREA IS SOFT AND NONTENDER. PEDAL PULSES PALPABLE. DC INSTRUCTIONS REVIEWED WITH PT AND WHO VERBALIZE UNDERSTANDING. IV DC'D WITH CATH INTACT AND PT IS DRESSING FOR DC WITH ASSIST.
--- NOTE | 2019-01-23 16:09 | NUR ---
1600 PT HAS DRESSED FOR DC WITH ASSIST. DENIES ANY C/O. PT ESCORTED TO PRIVATE AUTO VIA WC BY NURSE WITH DRIVING HIM HOME. PT HAS ALL PERSONAL BELONGINGS AND DC INSTRUCTIONS UPON DISCHARGE.
--- NOTE | 2019-01-25 14:29 | OP ---
PATIENT NAME: ROBERT FREEDMAN MEDICAL RECORD: [id number] :74 LOCATION:[facility] ADMISSION DATE: SURGEON: DENICE ARAUJO MD DATE OF OPERATION: 01/23/2019 PROCEDURE: Left heart catheterization, selective coronary angiography, right femoral artery approach. CATHETERS: A 5-Cypriot sheath, 5/4 left and right Katlin, 5/4 pig. The procedure was well tolerated. The patient was returned to veloz. Sheath was removed. ExoSeal device placed. FINDINGS: Left ventriculography in 30-degree QUIROS view: Normal wall motion and normal systolic function. CORONARY ANATOMY: LEFT MAIN: Left main is free of disease. LAD: LAD is free of disease in the diagonal system. CIRCUMFLEX: Free of disease in the marginal system. RIGHT CORONARY ARTERY: Dominant artery, gives rise to PDA, free of disease. IMPRESSION: Normal left ventricular systolic function, normal coronary anatomy. TRANSINT:[id number] Voice Confirmation ID: [id number] DOCUMENT ID: [id number] DENICE ARAUJO MD at 1429 CC: [id number] DICTATION DATE: 01/23/19 1343 BENCH ASSEMBLER ELECTRICAL: 01/23/19 1416 DEP CLI 01/23/19 [id number] [place] [address]
== END 2019-01-23 16:00 | disposition home or self-care (01) ==
LOC: D.CATH 11:15
PROVIDERS: ATTEND Internal Medicine Interventional Cardiology
DX: I20.0 Unstable angina (principal); N18.6 End stage renal disease